=== PATIENT | male | born 1975 | race Caucasian/White ===

== ENCOUNTER 2018-05-23 15:28 | Emergency (ER) | payer MEDICAID, SELFPAY ==
[2018-05-23 15:41] VITALS: BP 170/90; PULSE 99; RESP 19; TEMP 37.2; O2SAT 98
--- NOTE | 2018-05-23 15:41 | W.ED.GENAD ---
Discharge Plan Disposition Patient Disposition: HOME Condition: Stable Discharge Details Chief Complaint: DentalOral Clinical Impression: Pain, dental Reason For Visit: dental pain Primary Care Provider: Nitesh Zarate ED Provider: Pelon Mota Home Meds and New Rx's Prescriptions: New clindamycin HCl 150 mg capsule 450 mg PO TID 10 Days Qty: 90 RF: 0 No Action sulfamethoxazole-trimethoprim [Bactrim DS] 1 EACH tablet 2 ea PO BID Qty: 40 RF: 0 Discharge Instructions Additional Instructions: You are being treated for a dental infection follow up with a dentist within 2 weeks or so You should have your blood pressure rechecked by your primary care provider in about 2 weeks as it was elevated here if you have difficulty breathing or difficulty swallowing liquids return to the emergency department you can take 1000mg tylenol and 600mg ibuprofen every 6 hours for pain as needed Medical Decision Making 43 yo male with hx of dental caries comes in with bilateral lower posterior molar pain. no fevers, dyspnea or difficulty swallowing. Has numerous dental caries on exam and pain with percussion over both posterior molars on the lower jaw. No fluctuance or abscess that I can drain. no findings to suggest rpa, captain waiter, ludwigs, epiglotitis at this time, midline uvula and no evidence of pharyngitis. Will start abx, and he will f/u with his dentist. I also advised he have his BP rechecked by his pcp within 2 weeks Differential Diagnosis dental pain, caries, pulpitis HPI General Mode of arrival: ambulatory. Date/Time Provider Initiated Documentation: 05/23/18 15:32. Limitations to Documentation: no limitations. Information obtained by: patient. History of Present Illness 43 year old M presents to the emergency department with the chief complaint of dental pain, described as moderate, with intensity rated at 6. Quality is described as aching, and is localized to the mouth. Patient reports no radiation. Patient started experiencing this day(s) (3) and it has been constant. No relieving factors improve symptom(s), No exacerbating factors reported . Patient notes no other symptoms.. Patient did receive the following treatments prior to arrival, NSAID Related Data Home Medications Medication Instructions Recorded Confirmed sulfamethoxazole-trimethoprim 2 ea PO BID #40 tablet 01/14/13 [Bactrim Ds Tablet] clindamycin HCl 450 mg PO TID 10 Days #90 cap 05/23/18 Previous Rx's Medication Instructions Recorded sulfamethoxazole-trimethoprim 2 ea PO BID #40 tablet 01/14/13 [Bactrim Ds Tablet] clindamycin HCl 450 mg PO TID 10 Days #90 cap 05/23/18 Allergies Allergy/AdvReac Type Severity Reaction Status Date / Time Penicillins Allergy Mild Skin Rash Unverified 05/23/18 15:45 Review of Systems Review of Systems All systems reviewed & are unremarkable except as noted in HPI and below Constitutional Denies chills and Denies fever(s) ENT Denies change in voice Cardiovascular Denies chest pain and Denies dyspnea Respiratory Denies dyspnea Gastrointestinal Denies abdominal pain, Denies nausea and Denies vomiting PFSH Social History Smoking/Tobacco Use Status: Current every day Exam Const General: no acute distress Orientation: alert HENMT Head: normal to inspection Ears: external ears normal General nose exam: external nose normal Mouth: moist mucous membranes Eyes General: appearance normal, both eyes and all related structures Neck Neck: normal visual inspection Resp Effort & Inspection: normal respiratory effort and able to speak in complete sentences Cardio Rate: regular rate Skin General skin exam: no rashes or lesions noted Neuro General: alert and oriented x3 Extrem General: normal to inspection Psych Mental Status: mental status grossly normal
--- NOTE | 2018-05-23 15:44 | ED.GENADUL_ITS ---
Discharge Plan Disposition Patient Disposition: HOME Condition: Stable Discharge Details Chief Complaint: DentalOral Clinical Impression: Pain, dental Reason For Visit: dental pain Primary Care Provider: Nitesh Zarate ED Provider: Pelon Mota Home Meds and New Rx's Prescriptions: New clindamycin HCl 150 mg capsule 450 mg PO TID 10 Days Qty: 90 RF: 0 No Action sulfamethoxazole-trimethoprim [Bactrim DS] 1 EACH tablet 2 ea PO BID Qty: 40 RF: 0 Discharge Instructions Additional Instructions: You are being treated for a dental infection follow up with a dentist within 2 weeks or so You should have your blood pressure rechecked by your primary care provider in about 2 weeks as it was elevated here if you have difficulty breathing or difficulty swallowing liquids return to the emergency department you can take 1000mg tylenol and 600mg ibuprofen every 6 hours for pain as needed Medical Decision Making 43 yo male with hx of dental caries comes in with bilateral lower posterior molar pain. no fevers, dyspnea or difficulty swallowing. Has numerous dental caries on exam and pain with percussion over both posterior molars on the lower jaw. No fluctuance or abscess that I can drain. 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 Will start abx, and he will f/u with his dentist. I also advised he have his BP rechecked by his pcp within 2 weeks Differential Diagnosis dental pain, caries, pulpitis HPI General Mode of arrival: ambulatory . Date/Time Provider Initiated Documentation: 05/23/18 15:32 . Limitations to Documentation: no limitations . Information obtained by: patient . History of Present Illness 43 year old M presents to the emergency department with the chief complaint of dental pain, described as moderate, with intensity rated at 6. Quality is described as aching, and is localized to the mouth. Patient reports no radiation. Patient started experiencing this day(s) (3) and it has been constant. No relieving factors improve symptom(s), No exacerbating factors reported . Patient notes no other symptoms.. Patient did receive the following treatments prior to arrival, NSAID Related Data Home Medications Medication Instructions Recorded Confirmed sulfamethoxazole-trimethoprim 2 ea PO BID #40 tablet 01/14/13 [Bactrim Ds Tablet] clindamycin HCl 450 mg PO TID 10 Days #90 cap 05/23/18 Previous Rx's Medication Instructions Recorded sulfamethoxazole-trimethoprim 2 ea PO BID #40 tablet 01/14/13 [Bactrim Ds Tablet] clindamycin HCl 450 mg PO TID 10 Days #90 cap 05/23/18 Allergies Allergy/AdvReac Type Severity Reaction Status Date / Time Penicillins Allergy Mild Skin Rash Unverified 05/23/18 15:45 Review of Systems Review of Systems All systems reviewed & are unremarkable except as noted in HPI and below Constitutional Denies chills and Denies fever(s) ENT Denies change in voice Cardiovascular Denies chest pain and Denies dyspnea Respiratory Denies dyspnea Gastrointestinal Denies abdominal pain, Denies nausea and Denies vomiting PFSH Social History Smoking/Tobacco Use Status: Current every day Exam Const General: no acute distress Orientation: alert HENMT Head: normal to inspection Ears: external ears normal General nose exam: external nose normal Mouth: moist mucous membranes Eyes General: appearance normal, both eyes and all related structures Neck Neck: normal visual inspection Resp Effort & Inspection: normal respiratory effort and able to speak in complete sentences Cardio Rate: regular rate Skin General skin exam: no rashes or lesions noted Neuro General: alert and oriented x3 Extrem General: normal to inspection Psych Mental Status: mental status grossly normal
== END 2018-05-23 15:50 | disposition home or self-care (01) ==
LOC: ER 16:01
PROVIDERS: Emergency Provider Emergency Medicine; PCP Specialist/Technologist Athletic Trainer
DX: K08.89 Other specified disorders of teeth and supporting structures (principal); F17.210 Nicotine dependence, cigarettes, uncomplicated
CPT/HCPCS: 99283

== ENCOUNTER 2018-06-09 22:20 | Outpatient (REF) | payer MEDICAID, SELFPAY ==
[2018-06-10 01:10] LABS: ALT 55 U/L (12-78); AST 25 U/L (15-37); Albumin 4.5 g/dL (3.4-5.0); Alkaline Phosphatase 97 U/L (46-116); Anion Gap 11.4 mmol/L (3-11); BUN 12 mg/dL (7-18); Bilirubin, Total 0.6 mg/dL (0.2-1.0); CO2 28.6 mmol/L (21.0-32.0); CREATININE 1.13 mg/dL (0.70-1.30); Calcium 9.5 mg/dL (8.5-10.1); Chloride 99 mmol/L (98-107); Cholesterol 202 mg/dL (50-200); Glucose 80 mg/dL (70-100); HDL Cholesterol 31 mg/dL (40-60); LDL CHOLESTEROL 148 mg/dL (<100); Potassium 4.6 mmol/L (3.5-5.1); Sodium 139 mmol/L (136-145); Total Protein 8.1 g/dL (6.4-8.2); Triglyceride 112 mg/dL (30-150)
== END 2018-06-09 22:40 ==
LOC: NCHCN 22:20
PROVIDERS: PCP Specialist/Technologist Athletic Trainer; Visit Provider Specialist/Technologist Athletic Trainer
DX: Z00.00 Encounter for general adult medical examination without abnormal findings (principal); Z13.220 Encounter for screening for lipoid disorders; Z13.228 Encounter for screening for other metabolic disorders
CPT/HCPCS: 80053; 80061; 83721

== ENCOUNTER 2020-11-09 11:06 | Emergency (ER) | payer MEDICAID, SELFPAY ==
[2020-11-09 11:09] VITALS: BP 160/87; PULSE 74; RESP 18; TEMP 36.2; O2SAT 96
[2020-11-09] MEDS: Fluorescein STRIPS 100/BOX 1 MG OP (11:27)
[2020-11-09] MEDS: Tetracaine 0.5% 4 ML BTL OP (11:27)
--- NOTE | 2020-11-09 11:39 | ED.GENADUL_ITS ---
Discharge Plan Disposition Patient Disposition: HOME Condition: Good Discharge Details Clinical Impression: Eye foreign body, Abrasion of cornea, right Primary Care Provider: Nitesh Zarate ED Provider: Jackeline Montemayor Home Meds and New Rx's Prescriptions: New erythromycin 5 mg/gram (0.5 %) ointment 0.5 inch ophthalmic (eye) Q6H 3 Days RF: 0 erythromycin 5 mg/gram (0.5 %) ointment 0.5 inch ophthalmic (eye) QID Qty: 3.5 RF: 0 Discharge Instructions Instructions: Corneal Abrasion (ED), Eye Foreign Body (ED) Additional Instructions: follow-up with [facility] care in 48 hours with persistent symptoms use erythromycin for 3 days, 4x daily blood pressure rechecked by pcp return with new or worsening complaints Discharge Data Discharge Date/Time-TO BE ENTERED AT DEPARTURE: 11/09/20 11:49 Medical Decision Making visual acuity symmetrical, review triage notes residual abrasion, negative Broderick sign Foreign body removed without incident Instructed to follow-up with local eye care center in 24 to 48 hours with persistent symptoms Erythromycin ointment supplied Return precautions discussed patient states understanding Differential Diagnosis Differential Diagnosis: corneal abrasion, conjunctivitis, globe rupture, iritis Medical Records Medical records reviewed: Yes I reviewed the patient's medical records. HPI General Mode of arrival: ambulatory . Date/Time Provider Initiated Documentation: 11/09/20 11:15 . Limitations to Documentation: no limitations . Information obtained by: patient . HPI Narrative: With reports of possible foreign body appears reactive the past 48 hours. He has not performed any since remove foreign body. He denies any visual change. Denies any headaches or high trauma. Denies known event precipitating the foreign body sensation. Denies contact lens use. Wears corrective glasses only. States pain is exacerbated with blinking Related Data Home Medications Medication Instructions Recorded Confirmed erythromycin 0.5 inch OPHTHALMIC (EYE) Q6H 3 11/09/20 Days g erythromycin 0.5 inch OPHTHALMIC (EYE) QID #3.5 11/09/20 g Previous Rx's Medication Instructions Recorded erythromycin 0.5 inch OPHTHALMIC (EYE) Q6H 3 11/09/20 Days g erythromycin 0.5 inch OPHTHALMIC (EYE) QID #3.5 11/09/20 g Allergies Allergy/AdvReac Type Severity Reaction Status Date / Time Penicillins Allergy Mild Skin Rash Unverified 11/09/20 11:13 General Stated Complaint: EyeProblem BECKY: 4 Review of Systems Narrative: Review of systems obtained x3 and negative aside from where indicated in HPI [facility] Social History Smoking/Tobacco Use Status: Current every day Tobacco Type: cigarettes Smoking risk assessment performed?: Yes Alcohol Intake: current Alcohol Intake frequency: a few times a week Drug use: Never Substance use type: does not use Do you feel safe at home: Yes Do you feel safe in your relationship?: Yes Exam Const General: healthy appearing Eyes Alignment and Position: alignment normal Periorbital: periorbital findings normal Eyelids: eyelids normal Conjunctivae: conjunctival abnormality Cornea: corneas abnormal and fluorescein used Pupils: PERRL Other: fb noted ro 9 oclock position lateral to iris right eye, neg seidels sign no fb on lid eversion Course Vital Signs Vital signs: Vital Signs Temperature 36.2 C L 11/09/20 11:09 Pulse 74 11/09/20 11:09 Respiratory Rate 18 11/09/20 11:09 Blood Pressure 160/87 H 11/09/20 11:09 Pulse Oximetry 96 11/09/20 11:09 Temperature 36.2 C L 11/09/20 11:09 Temperature Source Temporal Artery Scan 11/09/20 11:09 Pulse 74 11/09/20 11:09 Respiratory Rate 18 11/09/20 11:09 Respiratory Effort Non-Labored 11/09/20 11:14 Blood Pressure 160/87 H 11/09/20 11:09 Blood Pressure Position Sitting 11/09/20 11:09 Pulse Oximetry 96 11/09/20 11:09 Oxygen Delivery Method Room Air 11/09/20 11:09 Oxygen Flow Rate 0 11/09/20 11:09 Pain Level 5 11/09/20 11:09 Procedures FB Removal Eye Time Out performed: Yes Location: eye (R) Topical anesthetic used: tetracaine Foreign body: wood Evidence of corneal penetration: No Technique: needle Procedure performed under: direct visualization with magnification Post-procedure medication: ophthalmic antibiotic Patient tolerated procedure: well and no complications
== END 2020-11-09 11:49 | disposition home or self-care (01) ==
PROVIDERS: Emergency Provider Physician Assistant; PCP Specialist/Technologist Athletic Trainer
DX: T15.01XA Foreign body in cornea, right eye, initial encounter (principal); X58.XXXA Exposure to other specified factors, initial encounter
CPT/HCPCS: 65220

== ENCOUNTER 2021-11-21 03:29 | Emergency (ER) | payer MEDICAID, SELFPAY ==
[2021-11-21 03:39] VITALS: BP 174/106; PULSE 81; RESP 16; TEMP 37.5; O2SAT 97
--- NOTE | 2021-11-21 03:45 | DI.RAD_ITS ---
Exam(s) XR SHOULDER RT COMPLETE 2+V EXAM: XR SHOULDER RT COMPLETE 2+V CLINICAL HISTORY: lateral/post pain. TECHNIQUE: 2D digital imaging was performed of the right shoulder. Five images were obtained. AP, Grashey, Y-view and axillary views were obtained. COMPARISON: No exams were available for comparison FINDINGS: BONES: No acute fracture is present. No bony destructive lesion is seen. JOINTS: No dislocation present. SOFT TISSUE: Normal. IMPRESSION: Unremarkable radiographs of the right shoulder. DATA REPOSITORY: RADIATION DOSE DELIVERED:
--- NOTE | 2021-11-21 03:59 | ED.GENADUL_ITS ---
Discharge Plan Disposition Patient Disposition: HOME Condition: Improving Discharge Details Clinical Impression: Strain of right supraspinatus muscle Primary Care Provider: Nitesh Zarate ED Provider: Jett Jackson Home Meds and New Rx's Prescriptions: New methocarbamol 500 mg tablet 500 - 1,000 mg PO Q6H PRN (Reason: Back pain or spasm) Qty: 14 0RF Discharge Instructions Instructions: Muscle Strain (ED) Additional Instructions: Sling as needed for comfort 2 to 5 days time. Apply heat to area to reduce discomfort. May apply ice for 20 to 30 minutes as well. Gently massage area with either tennis ball or lacrosse ball. May gently stretch to point of tension. Methocarbamol as needed for pain. May also use ibuprofen. Leave Lidoderm patch on for 12 hours, then remove for 12 hours. Further patches are available [id number]. Stand Alone Forms: Work Release Medical Decision Making 46-year-old male states that he has had chronic right shoulder pain for nearly 30 years since an initial dislocation. Over the past 3 to 4 days it has increased. He rolled over in bed last night and felt immediate worsening of right posterior lateral shoulder pain. He has palpable mild muscle spasm present on exam. Differential diagnosis will include arthritis, subluxation, calcific tendinitis. Patient was referred for x-ray which reveals normal alignment and bony structure. Most consistent with supraspinatus muscular spasm. Will trial Lidoderm patch, methocarbamol, sling. Patient given instructions as to stretching and massage at home. He is stable for outpatient management HPI General Mode of arrival: ambulatory . Date/Time Provider Initiated Documentation: 11/21/21 03:32 . Limitations to Documentation: no limitations . Information obtained by: patient . History of Present Illness 46 year old M presents to the emergency department with the chief complaint of R shoulder pain both chronically and acutely for 3 days, described as moderate, Quality is described as constant, and is localized to the right and upper extremity. Patient reports no radiation. Patient started experiencing this day(s) and it has been intermittent. Rest improves symptom(s), Movement worsens symptoms . Patient notes denies cough, fever/chills, shortness of breath and weakness. Patient did receive the following treatments prior to arrival, NSAID Related Data Home Medications Medication Instructions Recorded Confirmed methocarbamol 500 mg tablet 500 - 1,000 mg PO Q6H PRN Back 11/21/21 pain or spasm #14 tabs Previous Rx's Medication Instructions Recorded methocarbamol 500 mg tablet 500 - 1,000 mg PO Q6H PRN Back 11/21/21 pain or spasm #14 tabs Allergies Allergy/AdvReac Type Severity Reaction Status Date / Time Penicillins Allergy Mild Skin Rash Unverified 11/21/21 03:44 General Stated Complaint: GenMedical BECKY: 3 Review of Systems Narrative: Otherwise healthy. 6 systems reviewed and negative. PFSH All Active Problems (Updated 11/21/21 @ 04:34 by Jett Jackson MD) Eye foreign body (Acute) Abrasion of cornea, right (Acute) Strain of right supraspinatus muscle (Acute) Social History Smoking/Tobacco Use Status: Current every day Tobacco Type: cigarettes Smoking risk assessment performed?: Yes Alcohol Intake: current Alcohol Intake frequency: 0-2 drinks per day Drug use: Never Substance use type: does not use Do you feel safe at home: Yes Do you feel safe in your relationship?: Yes Exam Narrative Exam Narrative: GEN: awake, alert, oriented 3. Pleasant, well groomed, interactive. HEAD: Normocephalic, atraumatic ENT: Mucous membranes moist, oropharynx unremarkable, External ear exam unremarkable EYES: PERRL, EOMI NECK: Full ROM, no CARO, no menigismus CHEST/RESP: Nontender, clear to auscultation bilateral, no wheeze/rhonchi/rales CARDIOVASCULAR: RRR, no murmur, rub rogerio. 2+ Rad pulse bilateral ABDOMEN: Soft, nontender, no mass. +Bowel sounds EXT: Right side range of motion limited by pain. Tender to palpation with some mild spasm present both lateral and posterior deltoid. No pain with internal and external rotation. Patient able to extend the joint without difficulty. Neuro: Grossly normal neurologic exam, conversant, interactive. Psych: Speech fluent, thoughts congruent, affect normal Course Vital Signs Vital signs: Vital Signs Temperature 37.5 C 11/21/21 03:39 Pulse 81 11/21/21 03:39 Respiratory Rate 16 11/21/21 03:39 Blood Pressure 174/106 H 11/21/21 03:39 Pulse Oximetry 97 11/21/21 03:39 Temperature 37.5 C 11/21/21 03:39 Temperature Source Skin 11/21/21 03:39 Pulse 81 11/21/21 03:39 Respiratory Rate 16 11/21/21 03:39 Respiratory Effort 11/21/21 03:46 Blood Pressure 174/106 H 11/21/21 03:39 Pulse Oximetry 97 11/21/21 03:39 Oxygen Delivery Method Room Air 11/21/21 03:39 Oxygen Flow Rate 0 11/21/21 03:39 Pain Level 9 11/21/21 03:39
[2021-11-21] MEDS: Methocarbamol 500 MG TAB 1000 MG PO (04:47)
[2021-11-21] MEDS: Lidocaine 5% Patch 1 PATCH TP (04:49)
--- NOTE | 2021-11-21 06:41 | DI.VRAD_ITS ---
PROCEDURE INFORMATION: Exam: XR Right Shoulder Exam date and time: 11/21/2021 4:22 AM Age: 46 years old Clinical indication: Pain; Shoulder; Right; Additional info: Right shoulder pain TECHNIQUE: Imaging protocol: Radiologic exam of the Right shoulder. Views: 2 or more views. COMPARISON: No relevant prior studies available. FINDINGS: Bones/joints: Normal. Soft tissues: Normal. IMPRESSION: No acute findings. Dictated and Authenticated by: Tate Coyle MD. Ordering:ARIK Frausto MD
== END 2021-11-21 04:57 | disposition home or self-care (01) ==
PROVIDERS: Emergency Provider Emergency Medicine; PCP Specialist/Technologist Athletic Trainer
DX: S46.011A Strain of muscle(s) and tendon(s) of the rotator cuff of right shoulder, initial encounter (principal); F17.210 Nicotine dependence, cigarettes, uncomplicated; X50.9XXA Other and unspecified overexertion or strenuous movements or postures, initial encounter
CPT/HCPCS: 99283; 73030; 99284

== ENCOUNTER 2022-07-21 07:48 | Emergency (ER) | payer MEDICAID, SELFPAY ==
--- NOTE | 2022-07-21 07:45 | RT.EKG_ITS ---
APPROVED REPORT Exam: Resting ECG Reason for Exam: chest heaviness Patient Location: E HR:76 bpm ECG Measurements Heart Rate 76 AXIS [place] 132 P -30 QRSd 74 QRS 37 QT 374 T 52 QTc 419 Conclusion Sinus rhythm...normal P axis, V-rate 60- 99
[2022-07-21 07:54] VITALS: BP 136/90; PULSE 77; RESP 18; TEMP 36.9; O2SAT 99
--- NOTE | 2022-07-21 08:15 | ED.GENADUL_ITS ---
Discharge Plan Disposition Patient Disposition: Home Condition: Stable Discharge Details Clinical Impression: Bronchitis Primary Care Provider: Mikel Hinojosa ED Provider: Bogdan Jasmine Home Meds and New Rx's Prescriptions: New doxycycline hyclate 100 mg capsule 100 mg PO BID Qty: 10 0RF benzonatate 200 mg capsule 200 mg PO TID PRN (Reason: cough) Qty: 30 0RF prednisone 20 mg tablet 40 mg PO DAILY Qty: 10 0RF Discharge Instructions Instructions: Acute Bronchitis (ED) Additional Instructions: As discussed today I feel that you have symptoms consistent with bronchitis or prolonged viral illness. Your lung sounds are clear and you have been prescribed medication to help with your symptoms. I have given you a paper prescription for antibiotic that if your cough does not start to improve in the next 48 to 72 hours or shows any signs of worsening or you get a return of fever please start antibiotic immediately and take until fully gone. If you develop any new or significant worsening of condition that you are concerned for please return to the emergency department for reassessment otherwise follow-up with primary care provider as needed Referrals: Mikel Hinojosa PA [Primary Care Provider] - Discharge Data Discharge Date/Time-TO BE ENTERED AT DEPARTURE: 07/21/22 08:28 Medical Decision Making Patient presenting to the emergency department for chief complaint of cough. Patient states he started with cold-like symptoms 10 days ago and initially had subjective fever and sore throat and nasal congestion. Nasal congestion and sore throat have improved but cough has lingered. Patient does state some chest tightness with coughing but denies any return of fever, worsening cough, shortness of breath. Physical exam is unremarkable with clear lung sounds, no tachycardia, no hypoxia, patient is afebrile and normotensive. Due to patient reporting some chest tightness staff nuclear weapons officer performed EKG. Please review physician interpretation for full interpretation of EKG but upon my review patient is in sinus rhythm with no acute findings to suggest STEMI or need of further cardiac work-up. Differential diagnosis to include prolonged viral illness, bronchitis, possible early pneumonia. While at this time I do not think that the patient has pneumonia more likely bronchitis given that he is a daily smoker. Given this will prescribe patient steroids, Tessalon Perles, and a pocket prescription for doxycycline in case patient does have worsening of cough given that he has had symptoms greater than 10 days but at this time again I doubt pneumonia given no fever or worsening of symptoms just prolonged symptoms. Did discuss with patient when he should use antibiotic otherwise we will start with symptomatic therapy. After discussion of diagnosis and plan of care patient has no further needs, questions, or concerns and states clear understanding to return to the emergency department for any worsening symptoms. This documentation was generated using [email or web address] dictation system, please disregard any oddities of phrase or misspellings. HPI General Mode of arrival: ambulatory . Date/Time Provider Initiated Documentation: 07/21/22 08:02 . Limitations to Documentation: no limitations . Information obtained by: RN notes reviewed . History of Present Illness 47 year old M presents to the emergency department with the chief complaint of Cough, described as moderate, with intensity rated at 4. Quality is described as aching, and is localized to the chest. Patient reports no radiation. Patient started experiencing this day(s) (10) and it has been constant. No relieving factors improve symptom(s), No exacerbating factors reported . Patient did receive the following treatments prior to arrival, other ([id number] cough meds) Related Data Home Medications Medication Instructions Recorded Confirmed benzonatate 200 mg capsule 200 mg PO TID PRN cough #30 caps 07/21/22 doxycycline hyclate 100 mg capsule 100 mg PO BID #10 caps 07/21/22 prednisone 20 mg tablet 40 mg PO DAILY #10 tabs 07/21/22 Previous Rx's Medication Instructions Recorded benzonatate 200 mg capsule 200 mg PO TID PRN cough #30 caps 07/21/22 doxycycline hyclate 100 mg capsule 100 mg PO BID #10 caps 07/21/22 prednisone 20 mg tablet 40 mg PO DAILY #10 tabs 07/21/22 Allergies Allergy/AdvReac Type Severity Reaction Status Date / Time Penicillins Allergy Mild Skin Rash Unverified 07/21/22 07:58 General Stated Complaint: RespSymp BECKY: 3 Review of Systems Constitutional Constitutional: Denies chills, Denies fatigue, Reports fever(s) (Subjective early on), Denies headache(s) and Denies malaise ENT Ears, Nose, Mouth, and Throat: Denies headache(s), Reports nasal congestion and Reports sore throat Cardiovascular Cardiovascular: Denies chest pain and Denies dyspnea Respiratory Respiratory: Reports pain with cough and Denies dyspnea Gastrointestinal Gastrointestinal: Denies abdominal pain Neurologic Neurologic: Denies headache(s) Endocrine Endocrine: Denies fatigue PFSH All Active Problems (Updated 07/21/22 @ 08:21 by Bogdan Jasmine NP) Eye foreign body (Acute) Abrasion of cornea, right (Acute) Bronchitis (Acute) Social History Smoking/Tobacco Use Status: Current every day Tobacco Type: cigarettes Smoking risk assessment performed?: Yes Alcohol Intake: current Alcohol Intake frequency: 0-2 drinks per day Drug use: Never Substance use type: does not use Do you feel safe at home: Yes Do you feel safe in your relationship?: Yes Exam Const General: cooperative, comfortable and no acute distress Orientation: alert and awake HENNM Head: normal to inspection, normocephalic and atraumatic Ears: hearing grossly normal bilaterally and TM's normal bilaterally General nose exam: external nose normal Face and sinus: no erythema Mouth: oral mucosae normal, no drooling, no muffled voice and no trismus Throat: posterior oropharynx normal Neck Neck: normal visual inspection, full ROM, no meningeal signs, trachea midline and supple Resp Effort & Inspection: normal respiratory effort and able to speak in complete sentences Auscultation: clear to auscultation bilaterally Cardio Rate: regular rate Rhythm: regular rhythm Heart Sounds: S1 normal, S2 normal, normal S1 and S2, no click, no gallops, no murmurs and no rubs Skin General skin exam: no rashes or lesions noted and dry skin (warm) Neuro General: patient alert, patient awake, patient oriented x3, gait normal and moves all extremities Cognition: normal cognition Speech: speech normal Course Vital Signs Vital signs: Vital Signs Temperature 36.9 C 07/21/22 07:54 Pulse 77 07/21/22 07:54 Respiratory Rate 18 07/21/22 07:54 Blood Pressure 136/90 07/21/22 07:54 Pulse Oximetry 99 07/21/22 07:54 Temperature 36.9 C 07/21/22 07:54 Temperature Source Oral 07/21/22 07:54 Pulse 77 07/21/22 07:54 Respiratory Rate 18 07/21/22 07:54 Respiratory Effort Normal, Non-Labored 07/21/22 08:00 Respiratory Depth Normal 07/21/22 08:00 Blood Pressure 136/90 07/21/22 07:54 Blood Pressure Position Sitting 07/21/22 07:54 Pulse Oximetry 99 07/21/22 07:54 Oxygen Delivery Method Room Air 07/21/22 07:54 Oxygen Flow Rate 0 07/21/22 07:54 PAWSS Have you Been Recently Intoxicated or Drunk Within the Last 30 days?: No Have you Ever Experienced Previous Episodes of Alcohol Withdrawal?: No Have you ever Experienced Withdrawal Seizures?: No Have you ever Experienced Delirium Tremens(DT)s?: No Have you ever undergone Alcohol Rehabilitation Treatment (i.e, inpt ot outpatient treatment programs)?: No Have you ever Experienced Blackouts?: No Have you ever Combined Alcohol with other Downers within the last 90 days?: No Have you ever Combined Alcohol with any other Substance of Abuse during the last 90 days?: No Positive Blood Alcohol level on Presentation? [PCS.BAL]: No Evidence of Increased Autonomic Activity (i.e. HR>120, tremor, sweating, agitation, nausea)?: No Result: 0
== END 2022-07-21 08:28 | disposition home or self-care (01) ==
PROVIDERS: Emergency Provider Nurse Practitioner Family; PCP Physician Assistant Medical
DX: J40 Bronchitis, not specified as acute or chronic (principal); R07.89 Other chest pain
CPT/HCPCS: 93005; 99283; 93010; 99284

== ENCOUNTER 2022-09-09 11:56 | Outpatient (REF) | payer MEDICAID, SELFPAY ==
[2022-09-09 15:53] LABS: Calculated LDL 119 mg/dL (<100); Cholesterol 164 mg/dL (<200); Glucose 110 mg/dL (74-106); HDL Cholesterol 40 mg/dL (40-60); Triglyceride 29 mg/dL (<150)
== END 2022-09-09 11:57 | disposition home or self-care (01) ==
LOC: NCHCN 11:56
PROVIDERS: PCP Physician Assistant Medical; Visit Provider Physician Assistant Medical
DX: Z13.1 Encounter for screening for diabetes mellitus (principal); Z13.220 Encounter for screening for lipoid disorders; Z00.00 Encounter for general adult medical examination without abnormal findings
CPT/HCPCS: 80061; 82947

== ENCOUNTER 2023-09-11 07:36 | Emergency (ER) | payer SELFPAY ==
--- NOTE | 2023-09-11 07:30 | RT.EKG_ITS ---
APPROVED REPORT Exam: Resting ECG Reason for Exam: SOB Patient Location: E HR:93 bpm ECG Measurements Heart Rate 93 AXIS NC 131 P 41 QRSd 78 QRS 41 QT 356 T 53 QTc 444 Conclusion Sinus rhythm...normal P axis, V-rate 60- 99
[2023-09-11 07:39] VITALS: BP 136/102; PULSE 94; RESP 16; TEMP 36.5; O2SAT 97
[2023-09-11 07:46] VITALS: BP 133/94; PULSE 95; RESP 18; O2SAT 98
[2023-09-11 07:48] VITALS: BP 133/94; PULSE 100; PULSE 97; RESP 18; O2SAT 97
[2023-09-11 07:49] VITALS: PULSE 98; RESP 23; O2SAT 98
[2023-09-11 07:50] VITALS: PULSE 90; RESP 16; O2SAT 97
[2023-09-11 08:06] LABS: Abs Immature Grans 0.04 10^3/uL (0.0-0.06); Absolute Basophil Count 0.06 10^3/uL (0.0-0.2); Absolute Eosinophil Count 0.27 10^3/uL (0.0-0.7); Absolute Lymphocyte Count 2.18 10^3/uL (1.2-3.4); Absolute Monocyte Count 0.96 10^3/uL (0.1-0.8); Absolute Neutrophil Count 6.98 10^3/uL (1.2-6.7); Basophils % 0.6 %; Eosinophils % 2.6 %; HCT 43.6 % (40.0-50.0); HGB 15.4 g/dL (13.5-17.5); Immature Grans % 0.4 %; Lymphocytes % 20.8 %; MCH 33.2 pg (27.0-33.0); MCHC 35.3 % (32.0-36.0); MCV 94 fL (80-95); MPV 10.6 fL (8.0-11.0); Monocytes % 9.2 %; Neutrophils % 66.4 %; Platelet Count 325 10^3/uL (130-400); RBC 4.64 10^6/uL (4.36-5.78); RDW 11.9 % (11.8-14.1); RDW-SD 41.1 fL; WBC 10.49 10^3/uL (4.4-10.8)
--- NOTE | 2023-09-11 08:11 | DI.RAD_ITS ---
Exam(s) XR CHEST 2V PA LATERAL EXAM: XR CHEST 2V PA LATERAL CLINICAL HISTORY: cough. TECHNIQUE: 2D digital imaging was performed. COMPARISON: No exams were available for comparison FINDINGS: 2 views: Heart size is normal. The mediastinum is not widened. Lungs are clear. No infiltrates nor pleural effusions. IMPRESSION: No acute pulmonary findings. DATA REPOSITORY: RADIATION DOSE DELIVERED:
--- NOTE | 2023-09-11 08:15 | ED.GENADUL_ITS ---
Discharge Plan Disposition Patient Disposition: Home Condition: Stable Discharge Details Chief Complaint: SOB Clinical Impression: Cough, Elevated blood sugar level Primary Care Provider: Mikel Hinojosa ED Provider: Krishna Soto Discharge Instructions Instructions: How to Stop Smoking (ED), Chronic Cough (ED) Additional Instructions: Please contact your primary care physician to arrange follow-up. Given prolonged respiratory symptoms, additional outpatient diagnostic testing is indicated. Please call your doctors office today. Labs showed your blood sugar was mildly elevated today. This should be rechecked. Please discuss this with your doctor. Return to the ER immediately for any worsening or new concerning symptoms. Stand Alone Forms: Work Release Referrals: Mikel Hinojosa PA [Primary Care Provider] - [facility] General Mode of arrival: ambulatory . Date/Time Provider Initiated Documentation: 09/11/23 07:39 . Limitations to Documentation: no limitations . Information obtained by: patient . HPI Narrative: 48-year-old male smoker presenting today with cough. Patient notes he had a respiratory illness in April that was severe. He notes symptoms improved after about 2 weeks and since that time has had intermittent cough. Cough has been more persistent and progressive over the past 1 month. He has associated dyspnea on exertion. Cough is nonproductive. He has no associated fever. No associated swelling. He does note pleuritic chest discomfort after coughing. Denies runny nose. Related Data Allergies Allergy/AdvReac Type Severity Reaction Status Date / Time Penicillins Allergy Mild Skin Rash Unverified 09/11/23 07:44 General Stated Complaint: SOB BECKY: 2 Review of Systems All systems reviewed & are unremarkable except as noted in HPI and below Constitutional Constitutional: Denies fever(s) Cardiovascular Cardiovascular: Reports dyspnea on exertion Respiratory Respiratory: Reports cough and Reports dyspnea on exertion Exam Const General: cooperative and no acute distress HENMT Mouth: moist mucous membranes Other: Mild erythema posterior oropharynx Eyes Conjunctivae: normal conjunctivae Sclera: normal sclerae Neck Neck: trachea midline and supple Resp Auscultation: clear to auscultation bilaterally, no rales, no rhonchi and no wheezes Cardio Rate: regular rate and not tachycardic Rhythm: regular rhythm Skin General skin exam: no rashes or lesions noted Neuro General: patient alert, patient awake and tone normal Extrem General: no calf tenderness and no edema Course Vital Signs Vital signs: Vital Signs Temperature 36.5 C 09/11/23 07:39 Pulse 94 H 09/11/23 07:39 Respiratory Rate 16 09/11/23 07:39 Blood Pressure 136/102 H 09/11/23 07:39 Pulse Oximetry 97 09/11/23 07:39 Temperature 36.5 C 09/11/23 07:39 Temperature Source Skin 09/11/23 07:39 Pulse 95 H 09/11/23 07:46 Respiratory Rate 18 09/11/23 07:46 Respiratory Effort Normal, Non-Labored 09/11/23 07:46 Respiratory Depth Normal 09/11/23 07:46 Respiratory Pattern Normal 09/11/23 07:46 Blood Pressure 133/94 H 09/11/23 07:46 Blood Pressure Position Sitting 09/11/23 07:46 Pulse Oximetry 98 09/11/23 07:46 Oxygen Delivery Method Room Air 09/11/23 07:46 Oxygen Flow Rate 0 09/11/23 07:39 Lab/Test Results Lab/Test Results: Laboratory Tests Range/Units 09/11/23 07:55 WBC (4.4-10.8) 10^3/uL 10.49 RBC (4.36-5.78) 10^6/uL 4.64 Hgb (13.5-17.5) g/dL 15.4 Hct (40.0-50.0) % 43.6 MCV (80-95) fL 94 MCH (27.0-33.0) pg 33.2 H MCHC (32.0-36.0) % 35.3 RDW (11.8-14.1) % 11.9 Plt Count (130-400) 10^3/uL 325 MPV (8.0-11.0) fL 10.6 Immature Gran % % 0.4 Neutrophils % % 66.4 Lymphocytes % % 20.8 Monocytes % % 9.2 Eosinophils % % 2.6 Basophils % % 0.6 Nucleated RBC % (0.0-0.3) % 0.0 Absolute Neutrophils (1.2-6.7) 10^3/uL 6.98 H Absolute Lymphocytes (1.2-3.4) 10^3/uL 2.18 Absolute Monocytes (0.1-0.8) 10^3/uL 0.96 H Absolute Eosinophils (0.0-0.7) 10^3/uL 0.27 Absolute Basophils (0.0-0.2) 10^3/uL 0.06 Medical Decision Making 824?48-year-old male smoker with 30-year pack history, presents with persistent nonproductive cough over the past 1 month, prior to that intermittent cough since respiratory illness in April. He notes dyspnea on exertion as well. He is saturating well in no respiratory distress. Clear lungs on auscultation. Plan to obtain chest x-ray and screening labs. 923 --chest x-ray interpreted by radiology: Lungs are clear. No infiltrates nor pleural effusions. Heart size is normal. The mediastinum is not widened. Labs reviewed and nondiagnostic. Plan for discharge with outpatient follow-up with PCP. Usual customary discharge instructions reviewed. Lab Data Lab results reviewed: Yes I reviewed the patient's lab results. Labs: Laboratory Tests Range/Units 09/11/23 07:55 WBC (4.4-10.8) 10^3/uL 10.49 RBC (4.36-5.78) 10^6/uL 4.64 Hgb (13.5-17.5) g/dL 15.4 Hct (40.0-50.0) % 43.6 MCV (80-95) fL 94 MCH (27.0-33.0) pg 33.2 H MCHC (32.0-36.0) % 35.3 RDW (11.8-14.1) % 11.9 Plt Count (130-400) 10^3/uL 325 MPV (8.0-11.0) fL 10.6 Immature Gran % % 0.4 Neutrophils % % 66.4 Lymphocytes % % 20.8 Monocytes % % 9.2 Eosinophils % % 2.6 Basophils % % 0.6 Nucleated RBC % (0.0-0.3) % 0.0 Absolute Neutrophils (1.2-6.7) 10^3/uL 6.98 H Absolute Lymphocytes (1.2-3.4) 10^3/uL 2.18 Absolute Monocytes (0.1-0.8) 10^3/uL 0.96 H Absolute Eosinophils (0.0-0.7) 10^3/uL 0.27 Absolute Basophils (0.0-0.2) 10^3/uL 0.06 Sodium (136-145) mmol/L 139 Potassium (3.5-5.1) mmol/L 4.1 Chloride (98-107) mmol/L 102 Carbon Dioxide (21.0-32.0) mmol/L 27.1 Anion Gap (3-11) mmol/L 9.9 BUN (7-18) mg/dL 15 Creatinine (0.70-1.30) mg/dL 1.1 Est GFR (CKD-EPI 2020) (mL/min/1.73m2) 81.78 Glucose (74-106) mg/dL 121 H Calcium (8.5-10.1) mg/dL 8.6 Total Bilirubin (0.2-1.0) mg/dL 0.9 AST (15-37) U/L 36 ALT (16-63) U/L 68 H Alkaline Phosphatase (46-116) U/L 91 Total Protein (6.4-8.2) g/dL 7.7 Albumin (3.4-5.0) g/dL 3.9 Quality:SDOH Health Related Social Needs: No Data to Display PFSH All Active Problems (Updated 09/11/23 @ 09:28 by Krishna Soto MD) Elevated blood sugar level (Acute) Cough (Acute) Abrasion of cornea, right (Acute) Eye foreign body (Acute) Social History Smoking/Tobacco Use Status: Current every day Tobacco Type: cigarettes Smoking risk assessment performed?: Yes Alcohol Intake: current Alcohol Intake frequency: 0-2 drinks per day Alcohol type: beer Drug use: Never Substance use type: does not use Housing: apartment Do you feel safe at home: Yes Do you feel safe in your relationship?: Yes
[2023-09-11 08:28] LABS: ALT 68 U/L (16-63); AST 36 U/L (15-37); Albumin 3.9 g/dL (3.4-5.0); Alkaline Phosphatase 91 U/L (46-116); Anion Gap 9.9 mmol/L (3-11); BUN 15 mg/dL (7-18); Bilirubin, Total 0.9 mg/dL (0.2-1.0); CO2 27.1 mmol/L (21.0-32.0); CREATININE 1.1 mg/dL (0.70-1.30); Calcium 8.6 mg/dL (8.5-10.1); Chloride 102 mmol/L (98-107); Estimated GFR 81.78 (mL/min/1.73m2); Glucose 121 mg/dL (74-106); Potassium 4.1 mmol/L (3.5-5.1); Sodium 139 mmol/L (136-145); Total Protein 7.7 g/dL (6.4-8.2)
[2023-09-11 10:13] LABS: COVID-19 PCR Negative (Negative); Influenza A PCR Negative (Negative); Influenza B PCR Negative (Negative); RSV PCR Negative (Negative)
[2023-09-11 10:24] LABS: Source Nasopharynx
== END 2023-09-11 09:39 | disposition home or self-care (01) ==
PROVIDERS: Emergency Provider Student in an Organized Health Care Education/Training Program; PCP Physician Assistant Medical
DX: R05.9 Cough, unspecified (principal); R73.9 Hyperglycemia, unspecified; R06.09 Other forms of dyspnea; F17.210 Nicotine dependence, cigarettes, uncomplicated
CPT/HCPCS: 80053; 87637; 93005; 99283; 71046; 85025; 93010

== ENCOUNTER 2024-01-06 11:55 | Emergency (ER) | payer SELFPAY ==
[2024-01-06 11:56] VITALS: BP 175/131; PULSE 118; RESP 16; TEMP 36.4; O2SAT 98
--- NOTE | 2024-01-06 12:16 | ED.GENADUL_ITS ---
Discharge Plan Disposition Patient Disposition: Home Condition: Stable Discharge Details Chief Complaint: Orthopedic Clinical Impression: Pain of left calf Primary Care Provider: Mikel Hinojosa ED Provider: Pelon Mota Home Meds and New Rx's Prescriptions: No Action No Known Home Meds Discharge Instructions Additional Instructions: Continue to take 1000 mg of acetaminophen and 600 mg of ibuprofen every 6 hours Follow-up with your primary care provider especially if not improving within a week If you feel more ill or develop new symptoms such as high fevers return to the emergency department for reevaluation HPI General Mode of arrival: ambulatory . Date/Time Provider Initiated Documentation: 01/06/24 11:56 . Limitations to Documentation: no limitations . Information obtained by: patient . History of Present Illness 48 year old M presents to the emergency department with the chief complaint of left calf pain, described as moderate, Quality is described as aching, Patient started experiencing this week(s) (2) and it has been constant. Rest improves symptom(s), Movement worsens symptoms . Patient notes no other symptoms.. Patient did receive the following treatments prior to arrival, none Related Data Home Medications ?Medication ?Instructions ?Recorded ?Confirmed Unknown [No Known Home Meds] 01/06/24 01/06/24 Allergies Allergy/AdvReac Type Severity Reaction Status Date / Time Penicillins Allergy Mild Skin Rash Unverified 09/11/23 07:44 General Stated Complaint: Orthopedic BECKY: 4 Review of Systems All systems reviewed & are unremarkable except as noted in HPI and below Constitutional Constitutional: Denies chills, Denies fever(s) and Denies weakness Cardiovascular Cardiovascular: Denies chest pain and Denies dyspnea Respiratory Respiratory: Denies cough and Denies dyspnea Gastrointestinal Gastrointestinal: Denies abdominal pain, Denies nausea and Denies vomiting Integumentary/Breasts Skin/Breast: Denies rash Neurologic Neurologic: Denies weakness Exam Const General: no acute distress Orientation: alert HENMT Head: normal to inspection Ears: external ears normal General nose exam: external nose normal Mouth: moist mucous membranes Eyes General: appearance normal, both eyes and all related structures Neck Neck: normal visual inspection Resp Effort & Inspection: normal respiratory effort and able to speak in complete sentences Cardio Rate: regular rate Skin General skin exam: no rashes or lesions noted Neuro General: patient alert and patient oriented x3 Extrem General: normal to inspection, full ROM and capillary refill normal Psych Mental Status: mental status grossly normal Course Vital Signs Vital signs: Vital Signs Temperature 36.4 C L 01/06/24 11:56 Pulse 118 H 01/06/24 11:56 Respiratory Rate 16 01/06/24 11:56 Blood Pressure 175/131 H 01/06/24 11:56 Pulse Oximetry 98 01/06/24 11:56 Temperature 36.4 C L 01/06/24 11:56 Temperature Source Temporal Artery Scan 01/06/24 11:56 Pulse 118 H 01/06/24 11:56 Respiratory Rate 16 01/06/24 11:56 Respiratory Effort Normal 01/06/24 12:03 Blood Pressure 175/131 H 01/06/24 11:56 Pulse Oximetry 98 01/06/24 11:56 Oxygen Delivery Method Room Air 01/06/24 11:56 Oxygen Flow Rate 0 01/06/24 11:56 Pain Level 10 01/06/24 11:56 Medical Decision Making 48-year-old male who denies any significant past medical history comes in with 2 weeks of nontraumatic left ear pain. He denies any falls or trauma. He says he has not had any fevers or chills. No paresthesias. He had an ultrasound done on the which showed no concerning findings, no DVT or Oneil's cyst. His leg is not swollen on exam, the pain is in the left lateral calf and the muscles do feel tight. No pitting edema, intact distal sensation and pulses. Seems most likely musculoskeletal, doubt compartment syndrome but will send a CPK to screen for this. Will also check for electrolyte abnormalities. Will treat his symptoms with Valium and obtain an x-ray just to exclude bony pathology. X-ray unremarkable and labs also unremarkable. CPK within normal limits. Patient's exam stable still has intact neurovascular exam, normal pulses, no leg swelling. Suspect calf strain, he is stable for discharge advised to follow-up with his PCP and return precautions given Differential Diagnosis Differential Diagnosis: Muscle spasm, calf strain Imaging Data Radiologic Study: Attestation: I personally reviewed and interpreted this imaging study as follows: Imaging: X-Ray Radiologist's impression: no acute findings Lab Data Lab results reviewed: Yes I reviewed the patient's lab results. Quality:SDOH Health Related Social Needs: No Data to Display PFSH All Active Problems (Updated 01/06/24 @ 13:49 by Pelon Mota MD) Pain of left calf (Acute) Abrasion of cornea, right (Acute) Eye foreign body (Acute) Social History Smoking/Tobacco Use Status: Current every day Tobacco Type: cigarettes Smoking risk assessment performed?: Yes Alcohol Intake: current Alcohol Intake frequency: 0-2 drinks per day Alcohol type: beer Drug use: Never Substance use type: does not use Housing: apartment Do you feel safe at home: Yes Do you feel safe in your relationship?: Yes
[2024-01-06 12:48] LABS: Abs Immature Grans 0.02 10^3/uL (0.0-0.06); Absolute Basophil Count 0.06 10^3/uL (0.0-0.2); Absolute Eosinophil Count 0.23 10^3/uL (0.0-0.7); Absolute Lymphocyte Count 2.15 10^3/uL (1.2-3.4); Absolute Monocyte Count 0.69 10^3/uL (0.1-0.8); Basophils % 0.7 %; Eosinophils % 2.8 %; HCT 49.9 % (40.0-50.0); Immature Grans % 0.2 %; Lymphocytes % 26.1 %; MCHC 36.1 % (32.0-36.0); MCV 94 fL (80-95); MPV 10.9 fL (8.0-11.0); Monocytes % 8.4 %; Neutrophils % 61.8 %; Platelet Count 274 10^3/uL (130-400); RDW 12.2 % (11.8-14.1); RDW-SD 42.5 fL; WBC 8.25 10^3/uL (4.4-10.8)
[2024-01-06] MEDS: diazePAM 10 MG/2 ML SYR 5 MG IVP (12:50)
[2024-01-06 13:03] LABS: Creatine Kinase 107 U/L (39-308)
[2024-01-06 13:07] LABS: ALT 141 U/L (16-63); AST 48 U/L (15-37); Albumin 4.5 g/dL (3.4-5.0); Alkaline Phosphatase 105 U/L (46-116); Anion Gap 8.8 mmol/L (3-11); BUN 12 mg/dL (7-18); Bilirubin, Total 0.59 mg/dL (0.2-1.0); CO2 27.2 mmol/L (21.0-32.0); Calcium 9.1 mg/dL (8.5-10.1); Chloride 104 mmol/L (98-107); Estimated GFR 91.69 (mL/min/1.73m2); Glucose 111 mg/dL (74-106); Magnesium 2.2 mg/dL (1.8-2.4); Potassium 3.7 mmol/L (3.5-5.1); Sodium 140 mmol/L (136-145); Total Protein 7.8 g/dL (6.4-8.2)
--- NOTE | 2024-01-06 13:16 | DI.RAD_ITS ---
Exam(s) XR TIB/FIB LT EXAM: XR TIB/FIB LT CLINICAL HISTORY: pain. TECHNIQUE: 2D digital imaging was performed. COMPARISON: No exams were available for comparison FINDINGS: Two views h no evidence of acute fracture. Bone density normal. No osseous lesions. No radiopaque foreign eden dies. Tibial plateau unremarkable. IMPRESSION: No significant osseous findings in the tibia and fibula. DATA REPOSITORY: RADIATION DOSE DELIVERED:
[2024-01-06 13:38] VITALS: BP 140/74; PULSE 78
== END 2024-01-06 14:00 | disposition home or self-care (01) ==
PROVIDERS: Emergency Provider Emergency Medicine; PCP Physician Assistant Medical
DX: M79.662 Pain in left lower leg (principal)
CPT/HCPCS: 80053; 82550; 96374; 99284; 73590; 83735; 85025; 99283; J3360